=== PATIENT | male | born 1975 | race African-American/Black ===

== ENCOUNTER 2018-06-07 10:45 | Emergency (ER) | payer MEDICAID ==
[~2018-06-07] VITALS: Ht 182.9 cm; Wt 111.1 kg
[2018-06-07 11:08] VITALS: Ht 182.9 cm; Wt 111.1 kg
[2018-06-07 13:11] VITALS: BP 122/85
== END 2018-06-07 13:11 | disposition home or self-care (01) ==
LOC: ED 10:45
DX: K40.90 Unilateral inguinal hernia, without obstruction or gangrene, not specified as recurrent (principal)

== ENCOUNTER 2018-08-29 08:35 | Emergency (ER) | payer SELFPAY ==
[~2018-08-29] VITALS: Ht 182.9 cm; Wt 111.1 kg
[2018-08-29 08:41] VITALS: Ht 182.9 cm; Wt 111.1 kg
[2018-08-29 09:27] LABS: BASOPHIL % 0.3 % (0-2); PLATELET COUNT 320 x10^3mcL (130-400)
[2018-08-29 09:36] LABS: CALCIUM 8.7 mg/dL (8.5-10.1); CARBON DIOXIDE 27.8 mmol/L (21-32); CHLORIDE SERUM 99 mmol/L (98-107); GFR1 > 60 mL/min; GLUCOSE SERUM 103 mg/dL (74-106); POTASSIUM SERUM 3.2 mmol/L (3.5-5.1); SODIUM SERUM 131 mmol/L (136-145)
[2018-08-29 09:41] LABS: ALBUMIN 3.4 g/dL (3.4-5.0); ALKALINE PHOSPHATASE 119 U/L (46-116); ALT/SGPT 23 U/L (16-63); AST/SGOT 15 U/L (15-37); BILIRUBIN TOTAL 0.43 mg/dL (0.20-1.00); LIPASE 120 IU/L (73-393); TOTAL PROTEIN, SERUM 7.8 g/dL (6.4-8.2)
[2018-08-29 09:44] LABS: RED CELL DISTRIBUTION WIDTH 14.7 % (11.5-14.5)
[2018-08-29 12:36] VITALS: BP 129/67
== END 2018-08-29 12:36 | disposition home or self-care (01) ==
LOC: ED 08:35
PROVIDERS: Emergency Medicine
DX: R10.30 Lower abdominal pain, unspecified (principal); R11.10 Vomiting, unspecified; R19.7 Diarrhea, unspecified; E87.6 Hypokalemia; E86.0 Dehydration
CPT/HCPCS: J1885; J2405; J7030

== ENCOUNTER 2018-12-09 08:58 | Emergency (ER) | payer SELFPAY ==
[~2018-12-09] VITALS: Ht 182.9 cm; Wt 111.8 kg
[2018-12-09 09:10] VITALS: Ht 182.9 cm; Wt 111.8 kg
[2018-12-09 09:53] LABS: BASOPHIL % 0.5 % (0-2); PLATELET COUNT 349 x10^3mcL (130-400)
[2018-12-09 09:57] LABS: RED CELL DISTRIBUTION WIDTH 15.2 % (11.5-14.5)
[2018-12-09 10:01] LABS: CALCIUM 7.9 mg/dL (8.5-10.1); CARBON DIOXIDE 29.4 mmol/L (21-32); CHLORIDE SERUM 105 mmol/L (98-107); CREATININE SERUM 0.9 mg/dL (0.7-1.3); GFR1 > 60 mL/min; GLUCOSE SERUM 113 mg/dL (74-106); SODIUM SERUM 143 mmol/L (136-145)
[2018-12-09 10:05] LABS: ALKALINE PHOSPHATASE 117 U/L (46-116); ALT/SGPT 18 U/L (16-63); AST/SGOT 11 U/L (15-37); BILIRUBIN TOTAL 0.29 mg/dL (0.20-1.00); LIPASE 101 IU/L (73-393); TOTAL PROTEIN, SERUM 7.6 g/dL (6.4-8.2)
[2018-12-09 10:11] LABS: ALBUMIN 3.3 g/dL (3.4-5.0)
[2018-12-09 12:10] VITALS: BP 115/81
== END 2018-12-09 12:10 | disposition home or self-care (01) ==
LOC: ED 08:58
PROVIDERS: Emergency Medicine
DX: R10.13 Epigastric pain (principal); R19.7 Diarrhea, unspecified; R10.30 Lower abdominal pain, unspecified
CPT/HCPCS: 36415

== ENCOUNTER 2019-02-07 05:50 | Inpatient (IN) | payer OTHER ==
[~2019-02-07] VITALS: Ht 182.9 cm; Wt 107.2 kg
[2019-02-07 05:53] VITALS: Ht 182.9 cm; Wt 107.2 kg
[2019-02-07 06:53] LABS: BASOPHIL % 0.4 % (0-2); CALCIUM 8.3 mg/dL (8.5-10.1); CARBON DIOXIDE 30.2 mmol/L (21-32); CHLORIDE SERUM 107 mmol/L (98-107); CREATININE SERUM 0.8 mg/dL (0.7-1.3); GFR1 > 60 mL/min; GLUCOSE SERUM 106 mg/dL (74-106); PLATELET COUNT 332 x10^3mcL (130-400); POTASSIUM SERUM 3.9 mmol/L (3.5-5.1); SODIUM SERUM 142 mmol/L (136-145)
[2019-02-07 06:56] LABS: RED CELL DISTRIBUTION WIDTH 14.8 % (11.5-14.5)
[2019-02-07 07:00] LABS: ALKALINE PHOSPHATASE 113 U/L (46-116); ALT/SGPT 16 U/L (16-63); AST/SGOT 9 U/L (15-37); BILIRUBIN TOTAL 0.2 mg/dL (0.20-1.00); LIPASE 69 IU/L (73-393); TOTAL PROTEIN, SERUM 7.1 g/dL (6.4-8.2)
[2019-02-07 07:05] LABS: ALBUMIN 3.2 g/dL (3.4-5.0)
[2019-02-07 09:46] LABS: T3 TOTAL 1.31 ng/mL
[2019-02-07 10:05] LABS: CHOLESTEROL/HDL RATIO 2.8; MAGNESIUM 2.1 mg/dL (1.8-2.4); PHOSPHOROUS 3.2 mg/dL (2.5-4.9)
[2019-02-07 10:47] VITALS: BP 137/76
[2019-02-07 11:56] LABS: FREE T4 0.94 ng/dL (0.76-1.46); FREE THYROXINE INDEX 2.3 ug/dL (1.4-4.5); T4(THYROXINE) 6.6 ug/dL (4.7-13.3)
[2019-02-07 13:13] VITALS: BP 122/68
[2019-02-07 15:53] VITALS: BP 134/86
[2019-02-07 20:34] VITALS: BP 100/70
[2019-02-08 05:17] VITALS: BP 118/60
[2019-02-08 06:48] LABS: CALCIUM 8.3 mg/dL (8.5-10.1); CARBON DIOXIDE 29.6 mmol/L (21-32); CHLORIDE SERUM 104 mmol/L (98-107); CREATININE SERUM 0.7 mg/dL (0.7-1.3); GFR1 > 60 mL/min; GLUCOSE SERUM 94 mg/dL (74-106); POTASSIUM SERUM 4.1 mmol/L (3.5-5.1); SODIUM SERUM 140 mmol/L (136-145)
[2019-02-08 07:13] LABS: BASOPHIL % 0.2 % (0-2); PLATELET COUNT 366 x10^3mcL (130-400); RED CELL DISTRIBUTION WIDTH 14.4 % (11.5-14.5)
[2019-02-08 08:38] VITALS: BP 125/82
[2019-02-08 15:10] VITALS: BP 125/82
== END 2019-02-08 15:29 | disposition home or self-care (01) | DRG 343 ==
LOC: ED 05:50 → MU 07:47
PROVIDERS: Emergency Medicine; Surgery; ADMIT General Practice
PROC: 0DTJ4ZZ Resection of Appendix, Percutaneous Endoscopic Approach (ICD-10-PCS; principal; 2019-02-07 11:00)
DX: K35.80 Unspecified acute appendicitis (principal); E66.9 Obesity, unspecified; Z68.25 Body mass index [BMI] 25.0-25.9, adult
CPT/HCPCS: 84439; G0378; J0330; J1170; J1885; J2270; J2405; J2543; J2704; J2710; J3010; J3490; J7030; J7120

== ENCOUNTER 2019-02-11 14:42 | Emergency (ER) | payer SELFPAY ==
[~2019-02-11] VITALS: Ht 182.9 cm; Wt 109.3 kg
[2019-02-11 14:57] VITALS: Ht 182.9 cm; Wt 109.3 kg
[2019-02-11 15:32] VITALS: BP 145/84
== END 2019-02-11 15:32 | disposition home or self-care (01) ==
LOC: ED 14:42
DX: Z02.79 Encounter for issue of other medical certificate (principal); Z98.890 Other specified postprocedural states

== ENCOUNTER 2019-05-02 11:08 | Emergency (ER) | payer BC, MEDICAID ==
[~2019-05-02] VITALS: Ht 182.9 cm; Wt 118.4 kg
[2019-05-02 11:50] VITALS: Ht 182.9 cm; Wt 118.4 kg
[2019-05-02 14:22] VITALS: BP 138/82
== END 2019-05-02 14:22 | disposition home or self-care (01) ==
LOC: ED 11:08
DX: R30.0 Dysuria (principal)
CPT/HCPCS: 87491; 87591; J0696

== ENCOUNTER 2019-05-04 06:11 | Emergency (ER) | payer BC, MEDICAID ==
[~2019-05-04] VITALS: Ht 182.9 cm; Wt 117.9 kg
[2019-05-04 06:15] VITALS: BP 127/82; Ht 182.9 cm; Wt 117.9 kg
== END 2019-05-04 07:03 | disposition home or self-care (01) ==
LOC: ED 06:11
DX: K40.90 Unilateral inguinal hernia, without obstruction or gangrene, not specified as recurrent (principal)

== ENCOUNTER 2019-07-23 13:29 | Emergency (ER) | payer BC, MEDICAID, SELFPAY ==
[~2019-07-23] VITALS: Ht 182.9 cm; Wt 113.4 kg
[2019-07-23 15:30] VITALS: BP 129/87
== END 2019-07-23 15:30 | disposition home or self-care (01) ==
LOC: ED 13:29
DX: J18.9 Pneumonia, unspecified organism (principal)
CPT/HCPCS: 87804; Q0092; U0002

== ENCOUNTER 2019-07-31 08:37 | Emergency (ER) | payer BC, MEDICAID ==
[~2019-07-31] VITALS: Ht 182.9 cm; Wt 122.9 kg
[2019-07-31 08:49] VITALS: Ht 182.9 cm; Wt 122.9 kg
[2019-07-31 09:25] VITALS: BP 137/81
== END 2019-07-31 09:25 | disposition home or self-care (01) ==
LOC: ED 08:37
DX: R05 Cough (principal); R09.89 Other specified symptoms and signs involving the circulatory and respiratory systems; Z20.828 Contact with and (suspected) exposure to other viral communicable diseases